=== PATIENT | male | born 1965 | race Caucasian/White ===

== ENCOUNTER 2017-08-08 16:48 | Observation (INO) | payer BC, OTHER ==
[2017-08-08 16:54] VITALS: RESP 18
[2017-08-08] MEDS ORDERED: MORPHINE SULFATE 4 MG/ML SYRINGE IV STA (17:38)
[2017-08-08] MEDS ORDERED: SODIUM CHLORIDE 0.9% 1,000 ML IV STA (17:38)
[2017-08-08] MEDS ORDERED: ASPIRIN 81 MG PO STA (17:38)
[2017-08-08] MEDS ORDERED: ONDANSETRON 4 MG/2 ML VIAL IVP STA (17:38)
[2017-08-08] MEDS ORDERED: NITROGLYCERIN OINT 1 INCH/GM PACKET TOPICAL STA (17:38)
[2017-08-08] MEDS ORDERED: ACETAMINOPHEN TAB 500 MG TAB PO STA (17:39)
[2017-08-08 18:04] LABS: Basophils # (A) 0.1 k/uL (0-0.2); Basophils % (A) 1 %; CH 31.1; CHCM 35.1; Eosinophils # (A) 0.1 k/uL (0-0.7); Eosinophils % (A) 2 %; HCT 44.9 % (39.0-53.0); HDW 2.34; Luc # (Auto) 0.17; Luc % (Auto) 4; Lymphocytes # (A) 1.3 k/uL (1.0-4.8); Lymphocytes % (A) 28 %; MCH 29.7 pg (25.0-35.0); MCHC 33.4 g/dL (31.0-37.0); Mean Platelet Volume 7.3; Monocytes # (A) 0.4 k/uL (0-1.0); Monocytes % (A) 9 %; Neutrophils # (A) 2.7 k/uL (1.3-7.7); Neutrophils % (A) 57 %; RBC 5.04 m/uL (4.30-5.90); RDW 14.1 % (11.5-15.5); WBC 4.7 k/uL (3.8-10.6); WBC (Perox) 4.92
[2017-08-08 18:20] LABS: ALT 26 U/L (21-72); AST 18 U/L (17-59); Alkaline Phosphatase 58 U/L (38-126); Anion Gap 11 mmol/L; Blood Urea Nitrogen 18 mg/dL (9-20); Calcium 8.6 mg/dL (8.4-10.2); Carbon Dioxide 20 mmol/L (22-30); Chloride 108 mmol/L (98-107); Glucose 86 mg/dL (74-99); Non-African American GFR(MDRD) >60 (>60 ml/min/1.73 sqM); Potassium 4.2 mmol/L (3.5-5.1); Sodium 139 mmol/L (137-145); Total Bilirubin 0.4 mg/dL (0.2-1.3); Total Protein 6.4 g/dL (6.3-8.2)
[2017-08-08 18:26] LABS: Creatine Kinase 67 U/L (55-170)
[2017-08-08 18:27] LABS: INR 1.2 (<1.2); Partial Thromboplastin Time 25.7 sec (22.0-30.0); Prothrombin Time 11.8 sec (9.0-12.0)
--- NOTE | 2017-08-08 18:29 | XR ---
EXAMINATION TYPE: XR chest 2V DATE OF EXAM: 08/08/2017 COMPARISON: NONE HISTORY: Chest pain TECHNIQUE: Frontal and lateral views of the chest are obtained. FINDINGS: There is no heart failure nor confluent pneumonic infiltrate. Costophrenic angles are manuel r. There are chest leads. IMPRESSION: No active cardiopulmonary disease. There is clearing of the mild infiltrate and atelecta sis at the left lung base compared to old exam.
[2017-08-08 18:38] LABS: Creatine Kinase MB 0.4 ng/mL (0.0-2.4); Troponin I <0.012 ng/mL (0.000-0.034)
[2017-08-08] MEDS ORDERED: NITROGLYCERIN SL TABS 0.4 MG TAB SUBLINGUAL PRN (20:51)
[2017-08-08] MEDS ORDERED: HEPARIN SODIUM,PORCINE 5,000 UNIT/ML 1 ML VIAL IV ONE (20:51)
--- NOTE | 2017-08-08 20:51 | ED ---
Chest Pain HPI - General Chief Complaint: Chest Pain Stated Complaint: Chest Pain Time Seen by Provider: 08/08/17 17:28 Source: patient Mode of arrival: ambulatory Limitations: no limitations - History of Present Illness Initial Comments: 51 years old male had a chest pain off and on since 6 AM today since he woke up he felt lightheaded he was dizzy chest pain was right in the center and it did not radiate I is no history of heart disease and some time he felt some discomfort in his left shoulder he denied any shortness of breath right now he denies any pleuritic chest pain no fever no chills. He denies any headaches no neck pain he does feel some jaw discomfort that at times chest pain is resolved at this point he feels and will call 8 care no shortness of breath no abdominal pain no frequency urgency dysuria - Related Data Home Medications Medication Instructions Recorded Confirmed Citalopram Hydrobromide [CeleXA] 40 mg PO HS 06/10/15 08/08/17 buPROPion HCL [Wellbutrin XL] 300 mg PO HS 06/10/15 08/08/17 Ibuprofen [Motrin] 800 mg PO BID PRN 08/08/17 08/08/17 Allergies Allergy/AdvReac Type Severity Reaction Status Date / Time No Known Allergies Allergy Verified 08/08/17 17:05 Review of Systems ROS Statement: Those systems with pertinent positive or pertinent negative responses have been documented in the HPI. ROS Other: All systems not noted in ROS Statement are negative. EKG Findings - EKG Comments: EKG Findings:: Arm EKG is normal sinus rhythm ventricular rate is 80 GA interval is 160 QRS duration is 82 QT/QTc is 382/440 review of this EKG does not reveal any ST elevation or ST depression Past Medical History Past Medical History: Asthma, GERD/Reflux, Pneumonia Additional Past Medical History / Comment(s): HX OF TINNITUS,migraines, back pain, DDD,aspiration pneumonia 2012 History of Any Multi-Drug Resistant Organisms: None Reported Past Surgical History: Hernia Repair, Orthopedic Surgery Additional Past Surgical History / Comment(s): 03/30/16 Lap elvia fundoplasty, hiatal hernia repair wth mesh, EGD and excision mediastinal mass. Other surgical hx: vasectomy, right ankle surgery with pins, EGDs, undescended testicle surgery. STOMACH SURGERY Past Anesthesia/Blood Transfusion Reactions: Motion Sickness, Postoperative Nausea & Vomiting (PONV) Past Psychological History: Anxiety, Depression, PTSD Smoking Status: Former smoker Past Alcohol Use History: None Reported Past Drug Use History: None Reported - Past Family History Father Family Medical History: Hypertension Additional Family Medical History / Comment(s): Father is 74 yrs old. Mother Family Medical History: Cancer Additional Family Medical History / Comment(s): Mother had uterine cancer. She is 73 yrs old. General Exam - General Exam Comments Initial Comments: General: The patient is awake and alert, in no distress, and does not appear acutely ill. Skin: Skin is warm and dry and no rashes or lesions are noted. Eye: Pupils are equal, round and reactive to light, extra-ocular movements are intact; there is normal conjunctiva bilaterally. Ears, nose, mouth and throat: There are moist mucous membranes and no oral lesions. Neck: The neck is supple, there is no tenderness or JVD. Cardiovascular: There is a regular rate and rhythm. No murmur, rub or gallop is appreciated. Respiratory: To auscultation bilateral, no wheezing no rhonchi no distress respiratory portillo noticed Gastrointestinal: Soft, non-distended, non-tender abdomen without masses or organomegaly noted. There is no rebound or guarding present. Bowel sounds are unremarkable. Back: There is no tenderness to palpation in the midline. There is no obvious deformity. Musculoskeletal: Normal ROM, no tenderness, There is no pedal edema. There is no calf tenderness or swelling. No cords were appreciated. Neurological: CN II-XII intact, Cranial nerves III through XII are intact. There are no obvious motor or sensory deficits. Coordination appears grossly intact. Speech is normal. Psychiatric: Cooperative, appropriate mood & affect, normal judgment. Limitations: no limitations Course Vital Signs 08/08/17 08/08/17 08/08/17 16:50 18:03 19:10 Temperature 97.5 F L Pulse Rate 91 77 86 Respiratory 18 18 18 Rate Blood Pressure 144/94 132/85 126/84 O2 Sat by Pulse 97 97 95 Oximetry 08/08/17 20:08 Temperature Pulse Rate 97 Respiratory 18 Rate Blood Pressure 129/78 O2 Sat by Pulse 96 Oximetry Patient was reassessed at 2030, his CBC, compressive metabolic panel, INR, troponin, EKG, chest x-ray all within normal range but he have a pain off and on all day he got quite a few risk factors she is barely visible 50) we keep him in observation 1) and see esthetics instructor tomorrow this was discussed with the patient and he agreed with that we'll proceed with the admitting him under Dr. Aggarwal service Critical Care Time Total Critical Care Time: 30 Critical Care Time: Considering his chest pain chest pain off and on all day nose labs look good he' ll be heparinized, will consult cardiologylt in the morning Disposition Clinical Impression: Ischemic heart disease Disposition: ADMITTED IP TO THIS HOSP Referrals: Kendall Plata MD [Primary Care Provider] - 1-2 days
[2017-08-08] MEDS ORDERED: IBUPROFEN 800 MG TAB PO PRN (20:55)
[2017-08-08] MEDS ORDERED: SODIUM CHLORIDE 0.9% 1,000 ML IV SCH (21:00)
[2017-08-08] MEDS ORDERED: buPROPion XL 300 MG TAB.ER.24H PO SCH (21:00)
[2017-08-08] MEDS ORDERED: HEPARIN SODIUM,PORCINE/D5W PMX 25,000 UNIT in DEXTROSE/WATER 1 500ML.BAG IV SCH (21:00)
[2017-08-08] MEDS ORDERED: CITALOPRAM HYDROBROMIDE 20 MG TAB PO SCH (21:00)
[2017-08-08 22:16] VITALS: BMI 28.3
[2017-08-09 00:25] LABS: Creatine Kinase 56 U/L (55-170)
[2017-08-09 00:39] LABS: Creatine Kinase MB 0.3 ng/mL (0.0-2.4); Troponin I <0.012 ng/mL (0.000-0.034)
[2017-08-09 04:28] VITALS: TEMP 97.9
[2017-08-09 05:51] LABS: Cholesterol 131 mg/dL (<200); HDL Cholesterol 36 mg/dL (40-60)
[2017-08-09 06:09] LABS: Creatine Kinase 59 U/L (55-170)
[2017-08-09 06:23] LABS: Creatine Kinase MB 0.4 ng/mL (0.0-2.4); Troponin I <0.012 ng/mL (0.000-0.034)
[2017-08-09] MEDS ORDERED: ASPIRIN 325 MG TAB PO SCH (09:00)
--- NOTE | 2017-08-09 09:40 | P.CRDCN ---
History of Present Illness Consult date: 08/09/17 History of present illness: This is a 51-year-old male. Past medical history significant for asthma and gastroesophageal reflux disease. Patient presents with complaints of sharp midsternal chest pain. He states this pain came on all of a sudden while he was getting his kids ready for school. He had mild dizziness associated with this pain. He denies nausea, palpitations, diaphoresis, shortness of breath or radiation of the pain at all to any extremity or neck. He states this resolved on its own but came back intermittently throughout the day yesterday and even a couple times while he was here in the hospital. It is not associated with exertion and is reproducible on palpation. He has no history of hypertension, diabetes or hyperlipidemia. He has ever seen a emergency vehicle driver for any reason. He is a former smoker he quit smoking approximately 11 years ago. He denies any significant family history. He follows regularly with his PCP. He states he had a dobutamine stress test approximately 2-3 years ago here in the hospital. Records are reviewed and this was a negative stress test at that time. EKG done shows normal sinus mechanism, rate of 80 beats per minute with no T- wave abnormality. When compared with old EKG this appears consistent. Troponins are normal x3. Chest x-ray showed no acute cardiopulmonary process. Review of Systems Extensive review of systems performed, negative except mentioned in HPI. Past Medical History Past Medical History: Asthma, GERD/Reflux, Pneumonia Additional Past Medical History / Comment(s): HX OF TINNITUS,migraines, back pain, DDD,aspiration pneumonia 2013 History of Any Multi-Drug Resistant Organisms: None Reported Past Surgical History: Hernia Repair, Orthopedic Surgery Additional Past Surgical History / Comment(s): 03/30/16 Lap elvia fundoplasty, hiatal hernia repair wt mesh, EGD and excision mediastinal mass. Other surgical hx: vasectomy, right ankle surgery with pins, EGDs, undescended testicle surgery. STOMACH SURGERY Past Anesthesia/Blood Transfusion Reactions: Motion Sickness, Postoperative Nausea & Vomiting (PONV) Past Psychological History: Anxiety, Depression, PTSD Additional Psychological History / Comment(s): Pt resides with his spouse and 2 children. He is independent. He uses no assistive device. He drives. Pt states he used to self medicate his PTSD with alcohol but quit drinking many yrs ago. Smoking Status: Former smoker Past Alcohol Use History: None Reported Additional Past Alcohol Use History / Comment(s): quit in 2006, smoked 20 yrs - 1 PPD, quit drinking yrs. ago Past Drug Use History: None Reported - Past Family History Father Family Medical History: Hypertension Additional Family Medical History / Comment(s): Father is 74 yrs old. Mother Family Medical History: Cancer Additional Family Medical History / Comment(s): Mother had uterine cancer. She is 73 yrs old. Medications and Allergies Home Medications Medication Instructions Recorded Confirmed Type Citalopram Hydrobromide [CeleXA] 40 mg PO HS 06/10/15 08/08/17 History buPROPion HCL [Wellbutrin XL] 300 mg PO HS 06/10/15 08/08/17 History Ibuprofen [Motrin] 800 mg PO BID PRN 08/08/17 08/08/17 History Allergies Allergy/AdvReac Type Severity Reaction Status Date / Time No Known Allergies Allergy Verified 08/08/17 17:05 Physical Exam Vitals: Vital Signs Temp Pulse Pulse Resp BP BP Pulse Ox 08/09/17 07:46 97.9 F 65 18 96/60 97 08/09/17 04:00 97.9 F 67 18 93/54 92 L 08/09/17 03:26 69 18 08/08/17 22:34 80 18 08/08/17 22:25 97.8 F 74 18 113/70 97 08/08/17 21:34 97.8 F 76 18 117/81 95 08/08/17 20:08 97 18 129/78 96 08/08/17 19:10 86 18 126/84 95 08/08/17 18:03 77 18 132/85 97 08/08/17 16:50 97.5 F L 91 18 144/94 97 Intake and Output 08/08/17 08/09/17 08/09/17 22:59 06:59 14:59 Intake Total 500 124.396 Balance 500 124.396 Intake: Intake, IV Titration 124.396 Amount Heparin Sodium,Porcine/ 124.396 D5w Pmx 25,000 unit In Dextrose/Water 1 500ml. bag @ 10.26 UNITS/KG/HR 20.01 mls/hr IV .Q24H [facility] Rx#:[id number] Oral 500 Other: Voiding Method Toilet # Voids 3 Weight 91.5 kg GENERAL: This is a 51-year-old male in no apparent distress at the time of my examination. HEENT: Head is atraumatic, normocephalic. Pupils are equal, round. Sclerae anicteric. Conjunctivae are clear. Mucous membranes of the mouth are moist. Neck is supple. There is no jugular venous distention. No carotid bruit is heard. LUNGS: Clear to auscultation no wheezes, rales or rhonchi. No chest wall tenderness is noted on palpation or with deep breathing. HEART: Regular rate and rhythm without murmurs, rubs or gallops. S1 and S2 heard. ABDOMEN: Soft, nontender. Bowel sounds are heard. No organomegaly noted. EXTREMITIES: 2+ peripheral pulses with no evidence of peripheral edema and no calf tenderness noted. NEUROLOGIC: Patient is awake, alert and oriented x3. Results 08/08/17 17:55 08/08/17 17:55 Cardiac Enzymes 08/08/17 08/08/17 08/08/17 Range/Units 17:55 17:55 23:47 AST 18 (17-59) U/L CK-MB (CK-2) 0.4 0.3 (0.0-2.4) ng/mL Troponin I <0.012 <0.012 (0.000-0.034) ng/mL 08/09/17 Range/Units 05:24 AST (17-59) U/L CK-MB (CK-2) 0.4 (0.0-2.4) ng/mL Troponin I <0.012 (0.000-0.034) ng/mL Coagulation 08/08/17 08/09/17 Range/Units 17:55 03:00 PT 11.8 (9.0-12.0) sec APTT 25.7 45.0 H (22.0-30.0) sec Lipids 08/09/17 Range/Units 05:24 Triglycerides 66 (<150) mg/dL Cholesterol 131 (<200) mg/dL HDL Cholesterol 36 L (40-60) mg/dL CBC 08/08/17 Range/Units 17:55 WBC 4.7 (3.8-10.6) k/uL RBC 5.04 (4.30-5.90) m/uL Hgb 15.0 (13.0-17.5) gm/dL Hct 44.9 (39.0-53.0) % Plt Count 201 (150-450) k/uL Comprehensive Metabolic Panel 08/08/17 Range/Units 17:55 Sodium 139 (137-145) mmol/L Potassium 4.2 (3.5-5.1) mmol/L Chloride 108 H (98-107) mmol/L Carbon Dioxide 20 L (22-30) mmol/L BUN 18 (9-20) mg/dL Creatinine 1.04 (0.66-1.25) mg/dL Glucose 86 (74-99) mg/dL Calcium 8.6 (8.4-10.2) mg/dL AST 18 (17-59) U/L ALT 26 (21-72) U/L Alkaline Phosphatase 58 (38-126) U/L Total Protein 6.4 (6.3-8.2) g/dL Albumin 4.0 (3.5-5.0) g/dL Current Medications Generic Name Dose Route Start Last Admin Trade Name Freq PRN Reason Stop Dose Admin Aspirin 325 mg 08/09/17 09:00 Aspirin PO DAILY [facility] Bupropion HCl 300 mg 08/08/17 21:00 08/08/17 22:57 Wellbutrin Xl PO Not Given HS [facility] Citalopram Hydrobromide 40 mg 08/08/17 21:00 08/08/17 22:57 Celexa PO Not Given HS [facility] Heparin Sodium/Dextrose 25,000 500 mls @ 20.01 mls/hr 08/08/17 21:00 03:45 unit/ IV Solution IV 12.09 units/kg/hr .Q24H [facility] 23.6 mls/hr Protocol Titration 10.26 UNITS/KG/HR Sodium Chloride 1,000 mls @ 100 mls/hr 08/08/17 21:00 Saline 0.9% IV .Q10H [facility] Ibuprofen 800 mg 08/08/17 20:55 08/08/17 22:55 Motrin PO 800 mg BID PRN Administration Pain Nitroglycerin 0.4 mg 08/08/17 20:51 Nitrostat SUBLINGUAL Q5M PRN Chest Pain Intake and Output 08/08/17 08/09/17 08/09/17 22:59 06:59 14:59 Intake Total 500 124.396 Balance 500 124.396 Intake: Intake, IV Titration 124.396 Amount Heparin Sodium,Porcine/ 124.396 D5w Pmx 25,000 unit In Dextrose/Water 1 500ml. bag @ 10.26 UNITS/KG/HR 20.01 mls/hr IV .Q24H [facility] Rx#:[id number] Oral 500 Other: Voiding Method Toilet # Voids 3 Weight 91.5 kg 08/08/17 17:55 08/08/17 17:55 EKG Interpretations (text) EKG indicates a normal sinus mechanism no acute ST or T-wave abnormalities. Assessment and Plan Plan: ASSESSMENT 1. Chest pain, atypical PLAN Obtain echocardiogram to assess LV function. Patient will undergo a stress echocardiogram to evaluate whether or not he has any stress-induced ischemia. Heparin and IV fluids can be discontinued. If this testing is negative from a cardiac standpoint the patient will be stable for discharge home. Thank you kindly for this consultation. Nurse Practitioner note has been reviewed, I agree with a documented findings and plan of care. Patient was seen and examined.
--- NOTE | 2017-08-09 11:25 | ECHOF ---
Referral Reason:chest pain MEASUREMENTS -------- HEIGHT: 185.4 cm WEIGHT: 91.2 kg BP: 96/60 RVIDd: 3.1 cm (< 3.3) IVSd: 1.0 cm (0.6 - 1.1) LVIDd: 4.4 cm (3.9 - 5.3) LVPWd: 0.9 cm (0.6 - 1.1) IVSs: 1.2 cm LVIDs: 3.1 cm LVPWs: 1.4 cm LA Diam: 3.3 cm (2.7 - 3.8) LAESV Index (A-L): 20.35 ml/m Ao Diam: 4.1 cm (2.0 - 3.7) AV Cusp: 3.0 cm (1.5 - 2.6) MV EXCURSION: 21.258 mm (> 18.000) MV EF SLOPE: 60 mm/s (70 - 150) EPSS: 0.2 cm MV E Allan: 0.78 m/s MV DecT: 211 ms MV A Allan: 0.72 m/s MV E/A Ratio: 1.09 RAP: 5.00 mmHg RVSP: 30.35 mmHg FINDINGS -------- Sinus rhythm. This was a technically good study. The left ventricular size is normal. Left ventricular wall thickness is normal. Overall left ventricular systolic function is normal with, an EF between 60 - 65 %. The right ventricle is normal in size. Normal LA size by volume 22+/-6 ml/m2. The right atrium is normal in size. The aortic valve is trileaflet and appears structurally normal. The mitral valve is normal. The tricuspid valve appears structurally normal. Trace/mild (physiologic) pulmonic regurgitation. The aortic root is dilated measuring 4.1cm. There is no pericardial effusion. CONCLUSIONS -------- 1. Sinus rhythm. 2. The mitral valve is normal. 3. The tricuspid valve appears structurally normal. 4. Trace/mild (physiologic) pulmonic regurgitation. 5. The aortic root is dilated measuring 4.1cm. 6. There is no pericardial effusion. 7. This was a technically good study. 8. The left ventricular size is normal. 9. Left ventricular wall thickness is normal. 10. Overall left ventricular systolic function is normal with, an EF between 60 - 65 %. 11. The right ventricle is normal in size. 12. Normal LA size by volume 22+/-6 ml/m2. 13. The right atrium is normal in size. 14. The aortic valve is trileaflet and appears structurally normal. VAULT CLERK: Mckenzie Tinoco RDCS
--- NOTE | 2017-08-09 13:01 | EST ---
EXERCISE STRESS DATE OF SERVICE: 08/09/2017 AGE: 51 SEX: Male HT: 73" WT: 201 pounds PROTOCOL: Jagdeep STAGE: III DURATION OF EXERCISE: 8 minutes HEART RATE REST: 84 BLOOD PRESSURE REST: 112/90 MAXIMUM HEART RATE ACHIEVED: 147 MAXIMUM BLOOD PRESSURE: 143/52 85% MPHR: 145 100% MPHR: 170 METS: 9.7 INDICATIONS: Chest pain. Baseline EKG revealed normal sinus rhythm, no significant ST-T changes. Patient walked for 8 minutes on a standard Jagdeep protocol. Maximal heart rate of 147 beats per minute about 85% of predicted maximal. He developed fatigue and shortness of breath and also became a little lightheaded towards the end of exercise. Peak blood pressure was 143/52. EKG did not reveal any ST-segment changes to indicate ischemia. There was no arrhythmia. The patient was probably a bit dehydrated. By EKG criteria, this is a negative stress test with limited exercise capacity. There was no angina or arrhythmia. MMODL / IJN: [id number] /
--- NOTE | 2017-08-09 15:24 | P.HPIM ---
History of Present Illness Patient is a pleasant 51-year-old man came in with compensative chest pain sharp in nature midsternal area not associated with the nausea diaphoresis, palpitations nonpruritic in nature denied any radiation is about 5 or 10 in severity reproducible significantly improved patient appears to have musculoskeletal chest pain patient underwent stress test which was negative ruled out acute coronary syndromes. Patient denied any fever chills, cough, runny nose, dysuria and focal weakness Review of Systems REVIEW OF SYSTEMS: CONSTITUTIONAL: No fever, no malaise, no fatigue. HEENT: No recent visual problems or hearing problems. Denied any sore throat. CARDIOVASCULAR: No orthopnea, PND, no palpitations, no syncope. PULMONARY: No shortness of breath, no cough, no hemoptysis. GASTROINTESTINAL: No diarrhea, no nausea, no vomiting, no abdominal pain. Normoactive bowel sounds. NEUROLOGICAL: No headaches, no weakness, no numbness. HEMATOLOGICAL: Denies any bleeding or petechiae. GENITOURINARY: Denies any burning micturition, frequency, or urgency. MUSCULOSKELETAL/RHEUMATOLOGICAL: Denies any joint pain, swelling, or any muscle pain. ENDOCRINE: Denies any polyuria or polydipsia. The rest of the 14-point review of systems is negative. Past Medical History Past Medical History: Asthma, GERD/Reflux, Pneumonia Additional Past Medical History / Comment(s): HX OF TINNITUS,migraines, back pain, DDD,aspiration pneumonia 2013 History of Any Multi-Drug Resistant Organisms: None Reported Past Surgical History: Hernia Repair, Orthopedic Surgery Additional Past Surgical History / Comment(s): 03/30/16 Lap elvia fundoplasty, hiatal hernia repair wth mesh, EGD and excision mediastinal mass. Other surgical hx: vasectomy, right ankle surgery with pins, EGDs, undescended testicle surgery. STOMACH SURGERY Past Anesthesia/Blood Transfusion Reactions: Motion Sickness, Postoperative Nausea & Vomiting (PONV) Past Psychological History: Anxiety, Depression, PTSD Additional Psychological History / Comment(s): Pt resides with his spouse and 2 children. He is independent. He uses no assistive device. He drives. Pt states he used to self medicate his PTSD with alcohol but quit drinking many yrs ago. Smoking Status: Former smoker Past Alcohol Use History: None Reported Additional Past Alcohol Use History / Comment(s): quit in 2005, smoked 20 yrs - 1 PPD, quit drinking yrs. ago Past Drug Use History: None Reported - Past Family History Father Family Medical History: Hypertension Additional Family Medical History / Comment(s): Father is 74 yrs old. Mother Family Medical History: Cancer Additional Family Medical History / Comment(s): Mother had uterine cancer. She is 73 yrs old. Medications and Allergies Home Medications Medication Instructions Recorded Confirmed Type Citalopram Hydrobromide [CeleXA] 40 mg PO HS 06/10/15 08/08/17 History buPROPion HCL [Wellbutrin XL] 300 mg PO HS 06/10/15 08/08/17 History Ibuprofen [Motrin] 800 mg PO BID PRN 08/08/17 08/08/17 History Allergies Allergy/AdvReac Type Severity Reaction Status Date / Time No Known Allergies Allergy Verified 08/08/17 17:05 Physical Exam Vitals: Vital Signs Temp Pulse Pulse Resp BP BP Pulse Ox 08/09/17 11:42 97.9 F 79 18 108/73 94 L 08/09/17 07:46 97.9 F 65 18 96/60 97 08/09/17 04:00 97.9 F 67 18 93/54 92 L 08/09/17 03:26 69 18 08/08/17 22:34 80 18 08/08/17 22:25 97.8 F 74 18 113/70 97 08/08/17 21:34 97.8 F 76 18 117/81 95 08/08/17 20:08 97 18 129/78 96 08/08/17 19:10 86 18 126/84 95 08/08/17 18:03 77 18 132/85 97 08/08/17 16:50 97.5 F L 91 18 144/94 97 Intake and Output 08/09/17 08/09/17 08/09/17 06:59 14:59 22:59 Intake Total 124.396 240 Balance 124.396 240 Intake: Intake, IV Titration 124.396 Amount Heparin Sodium,Porcine/ 124.396 D5w Pmx 25,000 unit In Dextrose/Water 1 500ml. bag @ 10.26 UNITS/KG/HR 20.01 mls/hr IV .Q24H [facility] Rx#:[id number] Oral 240 Other: Voiding Method Toilet # Voids 3 Weight 91.172 kg Patient Weight 08/10/17 06:59 Weight 91.172 kg PHYSICAL EXAMINATION: GENERAL: The patient is alert and oriented x3, not in any acute distress. Well developed, well nourished. HEENT: Pupils are round and equally reacting to light. EOMI. No scleral icterus. No conjunctival pallor. Normocephalic, atraumatic. No pharyngeal erythema. No thyromegaly. CARDIOVASCULAR: S1 and S2 present. No murmurs, rubs, or gallops. PULMONARY: Chest is clear to auscultation, no wheezing or crackles. Patient does have reproducible chest pain in the retrosternal area ABDOMEN: Soft, nontender, nondistended, normoactive bowel sounds. No palpable organomegaly. MUSCULOSKELETAL: No joint swelling or deformity. EXTREMITIES: No cyanosis, clubbing, or pedal edema. NEUROLOGICAL: Gross neurological examination did not reveal any focal deficits. SKIN: No rashes. Results CBC & Chem 7: 08/08/17 17:55 08/08/17 17:55 Labs: Abnormal Lab Results - Last 24 Hours (Table) 08/08/17 08/08/17 08/09/17 Range/Units 17:55 17:55 03:00 INR 1.2 H (<1.2) APTT 45.0 H (22.0-30.0) sec Chloride 108 H (98-107) mmol/L Carbon Dioxide 20 L (22-30) mmol/L HDL Cholesterol (40-60) mg/dL 08/09/17 Range/Units 05:24 INR (<1.2) APTT (22.0-30.0) sec Chloride (98-107) mmol/L Carbon Dioxide (22-30) mmol/L HDL Cholesterol 36 L (40-60) mg/dL Thrombosis Risk Factor Assmnt - Choose All That Apply Each Factor Represents 1 point: Age 41-60 years, Obesity (BMI >25) Thrombosis Risk Factor Assessment Total Risk Factor Score: 2 Thrombosis Risk Factor Assessment Level: Low Risk Assessment and Plan Plan: #1 chest pain: Musculoskeletal ruled out acute coronary syndromes and stress test is negative patient will be discharged today patient is already on ibuprofen which she can continue for musculoskeletal chest pain. #2 gastroesophageal reflux disease for which patient is already on proton pump inhibitor which she can continue counseling that he will take nonsteroidal anti- inflammatories need to continue his proton pump inhibitor until he is done with nonsteroidal anti-inflammatories #3 asthma: Without any acute exacerbation
--- NOTE | 2017-08-09 15:25 | P.DS ---
Providers Date of admission: 08/08/17 20:52 Attending physician: Shirin Aggarwal Consults: 08/08/17 20:52 Consult Physician Urgent Consulting Provider: Artemio Fernando Consult Reason/Comments: Chest pain Do you want consulting provider notified?: Yes Primary care physician: Kendall Plata [facility] Course: Please refer to my HPI Plan - Discharge Summary New Discharge Prescriptions: No Action Citalopram Hydrobromide [CeleXA] 40 mg PO HS buPROPion HCL [Wellbutrin XL] 300 mg PO HS Ibuprofen [Motrin] 800 mg PO BID PRN PRN Reason: Pain Discharge Medication List Citalopram Hydrobromide [CeleXA] 40 mg PO HS 06/10/15 [History] buPROPion HCL [Wellbutrin XL] 300 mg PO HS 06/10/15 [History] Ibuprofen [Motrin] 800 mg PO BID PRN 08/08/17 [History] Follow up Appointment(s)/Referral(s): Mamadou Donald MD [STAFF PHYSICIAN] - 08/16/17 9:15 am (follow up in the office with Dr. EVE Donald as scheduled) Kendall Plata MD [Primary Care Provider] - 3 Days Patient Instructions/Handouts: Chest Pain (GEN) Discharge Disposition: HOME SELF-CARE
[2017-08-09 16:10] VITALS: BP 92/55; PULSE 74
== END 2017-08-09 16:40 | disposition home or self-care (01) ==
LOC: EC 16:48 → 3OBS 20:52
PROVIDERS: ADMIT Hospitalist; ATTEND Hospitalist
DX: R07.89 Other chest pain (principal); Z79.899 Other long term (current) drug therapy; R07.2 Precordial pain; R42 Dizziness and giddiness; M25.512 Pain in left shoulder; R68.84 Jaw pain; J45.909 Unspecified asthma, uncomplicated; K21.9 Gastro-esophageal reflux disease without esophagitis; Z87.01 Personal history of pneumonia (recurrent); F43.10 Post-traumatic stress disorder, unspecified; F32.9 Major depressive disorder, single episode, unspecified; F41.9 Anxiety disorder, unspecified; Z87.891 Personal history of nicotine dependence; Z82.49 Family history of ischemic heart disease and other diseases of the circulatory system; I25.9 Chronic ischemic heart disease, unspecified
CPT/HCPCS: 99291; 96376 ×2; 96375 ×3; 96361 ×6; 96365; 96366 ×2; 36415; 93005; 93017; 93306; 80061; 80053; 82550 ×2; 82553 ×2; 83735; 84484 ×2; 85025; 85610; 85730 ×2; 71020; G0378 ×2; J2270; J1644 ×2; J2405

== ENCOUNTER → 2017-08-28 | Outpatient (CLI) | payer OTHER ==
--- NOTE | 2017-08-28 22:52 | US ---
EXAMINATION TYPE: Ultrasound soft tissue neck DATE OF EXAM: 08/28/2017 COMPARISON: NONE CLINICAL HISTORY: 51-year-old male M54.2 Neck Pain. Pain left neck Technique: Multiple sonographic images along the left side of the neck at the site of patient's eder rn. FINDINGS: REAMER HAND NOTES: Scanned within patient's area of concern (left neck), multiple lymph nodes noted w ith largest = 1.1cm IMPRESSION: Multiple prominent but nonenlarged left cervical lymph nodes. These can be followed clinically. The a jodie can be reimaged if there is persistence or growth.
== END | disposition home or self-care (01) ==
LOC: RADUSWWP 16:40
PROVIDERS: ATTEND Family Medicine
DX: M54.2 Cervicalgia (principal)
CPT/HCPCS: 76536

== ENCOUNTER → 2019-06-19 | Outpatient (CLI) | payer BC ==
--- NOTE | 2019-06-19 08:01 | CT ---
EXAMINATION TYPE: CT chest w con DATE OF EXAM: 06/19/2019 COMPARISON: Chest x-ray dated 08/08/2017 HISTORY: Pleural scarring CT DLP: 656 mGycm. Automated Exposure Control for Dose Reduction was Utilized. TECHNIQUE: CT scan of the thorax is performed following with IV Contrast, patient injected with 100 ml mL of Isovue 300. FINDINGS: LUNGS: Linear density within the right upper lobe is contiguous with the pleural surface on coronal s eries 5 image 48 and seen on series 4 image 18 of the axial acquisition. On coronal images this appea rs as elongated scarring. No associated soft tissue density on soft tissue algorithm. Very minimal bi apical pleural parenchymal scarring is also seen. Terminal bronchus peribronchial cuffing in the righ t lung apex and slight cylindrical bronchiectasis are seen, possibly sequela of infectious airway dis ease. The lungs are grossly clear, there is no concerning parenchymal mass or nodule identified. Th ere is no pleural effusion or pneumothorax seen. The tracheobronchial tree is patent. MEDIASTINUM: There are no greater than 1 cm hilar or mediastinal lymph nodes. No pericardial effusi on is seen. OTHER: There are scattered subcentimeter too small to accurately characterize hepatic lesions, at steph st 4 in number. There is mild degree hepatic steatosis, limiting evaluation of hepatic masses. Gallbl adder surgically absent. Compression deformity of L1. This has 2 mm retropulsion of the superior endp late creating mild spinal canal stenosis. Compression deformities approximately 50%. Vaguely question ably seen on the prior chest x-ray. Correlate for point tenderness to determine acuity. Mild degenera tive changes of the remainder of the spine are seen. IMPRESSION: 1. No focal consolidation, pleural effusion or pneumothorax within the lungs. 2. Subcentimeter linear area of probable pleural-parenchymal scarring in the right upper lobe. 3. Very mild peribronchial cuffing of the right lung apex that could be postinfectious. 4. Multiple scattered too small to accurately characterize hepatic lesions and underlying hepatic danielle atosis. Note the liver is only partially visualized. 5. Age-indeterminate compression deformity of L1 with minimal retropulsion of the superior endplate c reating mild spinal canal stenosis. This is possibly vaguely seen on the prior x-ray and could be chr onic. Correlate with point tenderness to determine acuity. If there is further concern MRI could be p erformed.
== END | disposition home or self-care (01) ==
LOC: RADCTMAIN 06:50
PROVIDERS: ATTEND Family Medicine
DX: J98.4 Other disorders of lung (principal)
CPT/HCPCS: 71260; Q9967

== ENCOUNTER → 2020-01-19 | Outpatient (CLI) | payer BC | END | disposition home or self-care (01) | LOC: CPPFTMAIN 13:56 | PROVIDERS: ATTEND Nurse Practitioner Family | DX: J44.1 Chronic obstructive pulmonary disease with (acute) exacerbation (principal) | CPT/HCPCS: 94060; 94726; 94729 ==